=== PATIENT | female | born 1975 | race Hispanic/Latino ===

== ENCOUNTER 2020-04-08 07:24 | Emergency (ER) | payer OTHER ==
[2020-04-08] MEDS ORDERED: SODIUM CHLORIDE 0.9% (FLUSH) 10 ML SYG IV PRN (07:41)
[2020-04-08] MEDS ORDERED: SODIUM CHLORIDE 0.9% 1000ML 1,000 ML IVS ONE (07:41)
--- NOTE | 2020-04-08 07:42 | ED.PDOC ---
History of Present Illness - General Time Seen by Provider: 04/08/20 07:41 Source: patient - History of Present Illness Initial Comments: 44-year-old obese female who presents with chief complaint of lower abdominal pain. Onset 3 days ago, waxing and waning, describes as pressure to the midline of the lower pelvis with radiation to the right and left lower quadrant, "feels like I need to poop but I can't," currently 8/10 severity, states was even worse 3 days ago at initial onset, unknown exacerbating factors, has been taking Tylenol and applying icy hot with intermittent relief, denies any history of similar symptoms in the past. Reports she had bilateral tubal ligation 40 years ago after the of her last child. States she was having regular monthly periods until 3 months ago and has since not had a period which is unusual for her. Reports normal bowel movements, last was yesterday. Denies any dysuria/hematuria, fevers, chills, dyspnea, leg swelling. She does report some intermittent lower chest wall discomfort near her bra line and also some epigastric discomfort which comes and goes. Also reports fatigue and nausea without emesis. She has not seen a regular doctor in a while. She has no known medical issues and takes no medications on a daily basis. Patient lives in [place] but currently working in this area for [employer]. She came to the ED this morning because a family member was feeling seen and so she decided she wanted to also be evaluated. Allergies/Adverse Reactions: Allergies NO KNOWN ALLERGY Allergy (Verified 04/08/20 07:53) Home Medications: Ambulatory Orders Cephalexin Monohydrate [Keflex] 500 mg PO BID 5 Days #10 cap 04/08/20 Review of Systems - Review of Systems Review of Systems: 04/08/20 07:56 as per HPI All other Systems: Reviewed and Negative Family Medical History - Family History Mother Family History: Unknown Physical Exam - Physical Exam General Appearance: Alert, Comfortable, No apparent distress, Obese Eye Exam: bilateral normal Ears, Nose, Throat: hearing grossly normal, normal ENT inspection, normal pharynx Neck: non-tender, full range of motion, supple, normal inspection Respiratory: chest non-tender, lungs clear, normal breath sounds, no respiratory distress, no accessory muscle use Cardiovascular/Chest: normal peripheral pulses, regular rate, rhythm, no edema, no gallop, no JVD, systolic murmur - 2/6 systolic murmur best heard at the left upper sternal border Peripheral Pulses: radial,right: 2+, radial,left: 2+ Gastrointestinal/Abdominal: non tender, soft, no organomegaly, abnormal bowel sounds - diminished throughout Back Exam: normal inspection, no CVA tenderness, no vertebral tenderness Extremity: normal range of motion, non-tender, normal inspection, no pedal edema, no calf tenderness Neurologic: 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 Consider also perimenstrual cramping pain, uterine fibroids, gastroenteritis, IBS, uterine neoplasm, ovarian cyst, acute appendicitis, diverticulitis, ectopic , uterine , hernia, AAA, gastroparesis, other -Patient stable, no acute distress. She does have elevated blood pressure. Consider also essential hypertension, hypertensive urgency, ACS -Obtain blood work, urinalysis, test, cardiac work-up, KUB -Place peripheral IV, 1 L normal saline bolus, Zofran 4 mg IV, Toradol 30 mg IV 04/08/20 09:24 -Patient remains stable. Blood pressure is improved to 130s/80s. Patient reports pain is improved to 5/10 severity, feeling much better. -Labs reveal urinalysis which is suspicious for UTI with 3-5 WBCs, 2+ bacteria, positive leukocyte esterase. Serum WBC is slightly elevated to 12,000 and serum potassium is slightly low at 3.1. Labs otherwise largely unremarkable. Serum test is negative. Discussed all labs and finding with the patient. Discussed diagnosis of UTI. Will treat with Keflex 500 mg p.o. twice daily for 5 days, first dose here. Potassium chloride 40 mEq p.o. given in the ED as well for hypokalemia. -Discharged home in good condition, return warnings discussed. Advised close follow-up with primary care physician for pelvic pain, irregular periods, and elevated blood pressure which was initially noted this visit. Eric Ferro MD Billing #[id number] 04/08/20 07:41 IV Care:Saline Lock per Protoc QSHIFT Sodium Chloride 0.9% (Flush) [Saline Flush Syringe] 10 ml IV PRN PRN 04/08/20 08:00 EKG STAT Laboratory Results - last 24 hr 04/08/20 04/08/20 04/08/20 07:50 07:50 07:50 WBC 12.5 H RBC 4.49 Hgb 12.1 Hct 36.3 MCV 80.9 L MCH 26.9 L MCHC 33.2 RDW 16.4 H Plt Count 329 MPV 7.4 Absolute Neuts (auto) 7.20 H Absolute Lymphs (auto) 4.40 H Absolute Monos (auto) 0.60 Absolute Eos (auto) 0.10 Absolute Basos (auto) 0.10 Neutrophils % 57.8 Lymphocytes % 35.6 Monocytes % 4.5 Eosinophils % 1.0 Basophils % 1.1 Sodium 140 Potassium 3.1 L Chloride 102 Carbon Dioxide 26 Anion Gap 15.1 BUN 11 Creatinine 0.62 BUN/Creatinine Ratio 17.7 Random Glucose 114 H Serum Osmolality 279.7 Calcium 8.4 Total Bilirubin 0.4 Direct Bilirubin < 0.1 Indirect Bilirubin 0.3 AST 23 ALT 36 Alkaline Phosphatase 82 Troponin I Serum Total Protein 8.0 Albumin 4.1 Amylase 46 Lipase 35 Serum HCG, Qual Negative Urine Color Urine Appearance Urine pH Ur Specific [place] Urine Protein Urine Glucose (UA) Urine Ketones Urine Blood Urine Nitrite Urine Bilirubin Urine Urobilinogen Ur Leukocyte Esterase Urine RBC Urine WBC Ur Epithelial Cells Amorphous Sediment Urine Bacteria Urine Mucus 04/08/20 04/08/20 07:50 08:09 WBC RBC Hgb Hct MCV MCH MCHC RDW Plt Count MPV Absolute Neuts (auto) Absolute Lymphs (auto) Absolute Monos (auto) Absolute Eos (auto) Absolute Basos (auto) Neutrophils % Lymphocytes % Monocytes % Eosinophils % Basophils % Sodium Potassium Chloride Carbon Dioxide Anion Gap BUN Creatinine BUN/Creatinine Ratio Random Glucose Serum Osmolality Calcium Total Bilirubin Direct Bilirubin Indirect Bilirubin AST ALT Alkaline Phosphatase Troponin I < 0.02 Serum Total Protein Albumin Amylase Lipase Serum HCG, Qual Urine Color Yellow Urine Appearance Cloudy Urine pH 6.0 Ur Specific [place] >= 1.030 Urine Protein Negative Urine Glucose (UA) Negative Urine Ketones Negative Urine Blood Negative Urine Nitrite Negative Urine Bilirubin Negative Urine Urobilinogen 0.2 Ur Leukocyte Esterase Trace H Urine RBC 0-1 Urine WBC 3-5 H Ur Epithelial Cells 10-20 Amorphous Sediment 3+ Urine Bacteria 2+ H Urine Mucus Large - EKG/XRAY/CT EKG: Sinus - Normal sinus rhythm, heart rate 80, no ST elevations or Q waves noted, axis normal, intervals normal, no prior EKG for comparison. XRAY: chest - No acute processes per my read - Additional EKG/XRAY/Consults XRAY #2: abdomen - Nonspecific nonobstructive bowel gas pattern per my read Departure - Departure Clinical Impression: Irregular periods/menstrual cycles UTI (urinary tract infection) Qualifiers: Urinary tract infection type: acute cystitis Hematuria presence: without hematuria Qualified Code(s): N30.00 - Acute cystitis without hematuria Time of Disposition: :20 Disposition: Discharge to Home or Self Care Condition: Good Instructions: Urinary Tract Infection, Adult (DC) Diet: resume usual diet Activity: increase activity as tolerated Prescriptions: Cephalexin Monohydrate [Keflex] 500 mg PO BID 5 Days #10 cap Home Medications: Ambulatory Orders Cephalexin Monohydrate [Keflex] 500 mg PO BID 5 Days #10 cap 04/08/20 Additional Instructions: Take the antibiotics as directed and finish the full course even if well. You may continue taking [id number] medications to help with pelvic pain and cramping such as ibuprofen 600 to 800 mg every 6-8 hours as needed, Tylenol 650 mg every 6 hours as needed. Return to the ED if you develop concerning symptoms such as severe abdominal pain, heavy vaginal bleeding, bloody vomiting or diarrhea, etc. Follow-up with your primary care doctor is recommended in the next 1 to 2 weeks for repeat evaluation of your pelvic pain and also for repeat blood pressure check and wellness evaluation.
[2020-04-08 07:51] VITALS: TEMP 97.3
[2020-04-08] MEDS ORDERED: ONDANSETRON INJ 4 MG/2 ML VIAL IV ONE (07:53)
--- NOTE | 2020-04-08 08:27 | RAD ---
EXAM DESCRIPTION: Abdomen 1 View CLINICAL HISTORY: lower abdominal/pelvic pain COMPARISON: None. IMPRESSION: Single AP supine view of the abdomen shows nonspecific, nonobstructive bowel gas pattern. No abnormal calcifications are seen in the abdomen. The lung bases are not included in [id number]. Electronically signed by: Byron Arnold MD 04/08/2020 8:24 AM CDT
--- NOTE | 2020-04-08 08:44 | RAD ---
EXAM DESCRIPTION: Chest,1 View CLINICAL HISTORY: 44 years Female, epigastric discomfort, elevated BP COMPARISON: None. TECHNIQUE: AP portable chest. FINDINGS: The lungs are clear. No focal consolidation, pneumothorax or pleural effusion seen. The heart is normal in size. No acute osseous abnormality. IMPRESSION: No acute cardiopulmonary process. Electronically signed by: Jose Vaughn DO 04/08/2020 8:43 AM CDT
[2020-04-08] MEDS ORDERED: POTASSIUM CHLORIDE 20 MEQ TAB PO ONE (08:57)
[2020-04-08] MEDS ORDERED: CEPHALEXIN MONOHYDRATE 500 MG CAP PO ONE (08:57)
[2020-04-08 09:49] VITALS: BP 139/88; O2SAT 99
== END 2020-04-08 09:50 | disposition home or self-care (01) ==
LOC: ER 07:24
DX: N30.00 Acute cystitis without hematuria (principal); N92.6 Irregular menstruation, unspecified; Z98.51 Tubal ligation status
CPT/HCPCS: 36415; 71045; 74018; 80048; 80076; 81001; 82150; 83690; 84484; 84703; 85025; 93005; J2405; J7030